=== PATIENT | male | born 1955 | race Caucasian/White ===

== ENCOUNTER 2021-08-05 10:31 | Inpatient (IN) | payer OTHER ==
[2021-08-05] MEDS ORDERED: SODIUM CHLORIDE 1,000 ML IV STA (12:19)
[2021-08-05] MEDS ORDERED: KETOROLAC TROMETHAMINE 60 MG/2 ML VIAL IVPB ONE (12:20)
[2021-08-05] MEDS ORDERED: ONDANSETRON 4 MG/2 ML VIAL IVPUSH ONE (12:20)
[2021-08-05] MEDS ORDERED: ONDANSETRON 4 MG/2 ML VIAL ONE (12:41)
[2021-08-05] MEDS ORDERED: KETOROLAC TROMETHAMINE 30 MG/1 ML VIAL ONE ×2 (12:41→21:37)
[2021-08-05 12:48] LABS: BASO % 0.4 % (0-2.0); HEMATOCRIT 43.9 % (35.4-49); HEMOGLOBIN 15.3 GM/dL (11.7-16.9); LYMPH % 5.4 % (8-40); MCH 32.8 pg (25.7-33.7); MCHC 34.9 g/dl (32.0-35.9); MEAN CELL VOLUME 94.1 fl (80-96); MEAN PLT VOLUME 7.2 fl (7.5-11.1); MONO % 7.5 % (3.8-10.2); NEUT % 86.7 % (42.8-82.8); PLATELET COUNT 246 10^3/uL (134-434); RBC 4.66 M/mm3 (4.00-5.60); RDW 12.8 % (11.9-15.9); WHITE BLOOD COUNT 11.1 K/mm3 (4.0-10.0)
[2021-08-05 13:13] LABS: CALCIUM 9.2 mg/dL (8.5-10.1)
[2021-08-05 13:13] LABS: URINE APPEARANCE CLEAR; URINE BILIRUBIN NEGATIVE (NEGATIVE); URINE COLOR YELLOW; URINE GLUCOSE (UA) NEGATIVE (NEGATIVE); URINE KETONE 1+ (NEGATIVE); URINE LEUK ESTERASE NEGATIVE (NEGATIVE); URINE NITRITE NEGATIVE (NEGATIVE); URINE PROTEIN TRACE (NEGATIVE)
[2021-08-05 13:14] LABS: ALBUMIN 3.9 g/dl (3.4-5.0); BLOOD UREA NITROGEN 21.2 mg/dL (7-18)
[2021-08-05 13:17] LABS: CREATININE 1.6 mg/dL (0.55-1.3)
[2021-08-05 13:19] LABS: BILIRUBIN,TOTAL 1.6 mg/dL (0.2-1); TOT PROT 7.1 g/dl (6.4-8.2)
[2021-08-05] MEDS ORDERED: TAMSULOSIN HCL 0.4 MG CAP PO ONE (13:38)
[2021-08-05] MEDS ORDERED: TAMSULOSIN HCL 0.4 MG CAP ONE (13:43)
[2021-08-05] MEDS ORDERED: CEFTRIAXONE 1,000 MG in DEXTROSE 5%-WATER - 50 ML IVPB ONE (15:55)
[2021-08-05] MEDS ORDERED: KETOROLAC TROMETHAMINE 30 MG/1 ML VIAL IVPUSH ONE (21:15)
[2021-08-05] MEDS ORDERED: SODIUM CHLORIDE 1,000 ML IV SCH (21:45)
[2021-08-05] MEDS ORDERED: TOPIRAMATE 25 MG TABLET PO PRN (23:22)
[2021-08-05] MEDS ORDERED: MONTELUKAST NA 10 MG TABLET PO SCH (23:22)
[2021-08-05] MEDS ORDERED: MONTELUKAST NA 10 MG TABLET ONE (23:52)
[2021-08-06] MEDS ORDERED: morphine SULFATE 4 MG/ML VIAL IM PRN (00:41)
[2021-08-06 02:54] VITALS: BMI 25.7
[2021-08-06] MEDS ORDERED: morphine SULFATE 4 MG/ML VIAL IV PRN (03:34)
[2021-08-06] MEDS ORDERED: ACETAMINOPHEN 1000 MG/100 ML VIAL IVPB PRN (06:05)
[2021-08-06 07:43] LABS: BASO % 0.5 % (0-2.0); HEMOGLOBIN 12.5 GM/dL (11.7-16.9); LYMPH % 11.5 % (8-40); MCH 33.2 pg (25.7-33.7); MCHC 35.6 g/dl (32.0-35.9); MEAN CELL VOLUME 93.2 fl (80-96); MEAN PLT VOLUME 7.8 fl (7.5-11.1); MONO % 11.6 % (3.8-10.2); NEUT % 75.4 % (42.8-82.8); PLATELET COUNT 187 10^3/uL (134-434); RBC 3.76 M/mm3 (4.00-5.60); RDW 12.6 % (11.9-15.9); WHITE BLOOD COUNT 7.3 K/mm3 (4.0-10.0)
[2021-08-06 07:52] LABS: INR 1.19 (0.83-1.09); PROTHROMBIN TIME (PATIENT) 13.9 SEC (9.7-13.0)
[2021-08-06 07:54] LABS: ACTIVATED PTT 26.7 SECONDS (25.2-36.5)
[2021-08-06 08:11] LABS: BLOOD UREA NITROGEN 20.3 mg/dL (7-18)
[2021-08-06] MEDS ORDERED: PROPOFOL 20 ML ONE ×2 (08:11)
[2021-08-06 08:12] LABS: MAGNESIUM 1.7 mg/dL (1.8-2.4)
[2021-08-06] MEDS ORDERED: MIDAZOLAM HCL 2 MG/2 ML SINGLE DOSE VIAL ONE ×2 (08:12→08:13)
[2021-08-06] MEDS ORDERED: SUCCINYLCHOLINE CHLORIDE 200 MG/10 ML SYRINGE ONE (08:12)
[2021-08-06 08:13] LABS: BILIRUBIN,TOTAL 1.7 mg/dL (0.2-1); URIC ACID 3.9 mg/dL (2.6-7.2)
[2021-08-06 08:14] LABS: CREATININE 1.6 mg/dL (0.55-1.3); PHOSPHOROUS 2.4 mg/dL (2.5-4.9); TOT PROT 5.2 g/dl (6.4-8.2)
[2021-08-06 08:23] LABS: ALBUMIN 2.7 g/dl (3.4-5.0); CALCIUM 7.5 mg/dL (8.5-10.1)
[2021-08-06] MEDS ORDERED: IOHEXOL 300 MG/ML INFUS..BTL IV ONE (08:30)
[2021-08-06] MEDS ORDERED: TAMSULOSIN HCL 0.4 MG CAP PO SCH (08:30)
[2021-08-06] MEDS ORDERED: DEXAMETHASONE SOD PHOSPHATE 4 MG/1 ML VIAL ONE (08:45)
[2021-08-06] MEDS ORDERED: LIDOCAINE HCL/PF 2% SDV 5ML VIAL ONE (09:00)
[2021-08-06] MEDS ORDERED: GENTAMICIN SO4 80 MG/2 ML VIAL ONE (09:00)
[2021-08-06] MEDS ORDERED: LOSARTAN POTASSIUM 50 MG TABLET PO SCH (10:00)
[2021-08-06] MEDS ORDERED: amLODIPine BESYLATE 5 MG TABLET (FP) PO SCH (10:00)
[2021-08-06] MEDS: SODIUM CHLORIDE 1,000 ML IV SCH (10:50)
[2021-08-06] MEDS: LOSARTAN POTASSIUM 50 MG TABLET PO SCH (11:51)
[2021-08-06] MEDS: amLODIPine BESYLATE 10 MG TABLET (FP) PO SCH (11:52)
[2021-08-06] MEDS: TOPIRAMATE 25 MG TABLET PO PRN (11:52)
[2021-08-06] MEDS: ACETAMINOPHEN 1000 MG/100 ML VIAL IVPB PRN ×2 (13:39→21:11)
[2021-08-06] MEDS: morphine SULFATE 4 MG/ML VIAL IV PRN ×2 (15:24→18:56)
[2021-08-06] MEDS: TAMSULOSIN HCL 0.4 MG CAP PO SCH (16:21)
[2021-08-06] MEDS ORDERED: MAGNESIUM SULF 50% (8.12 MEQ/2 ML-1 GM VIAL) IVPB ONE (18:45)
[2021-08-06] MEDS ORDERED: NAPH,MB-DB/K PH,MBDB POWDER PACKET PO ONE (18:48)
[2021-08-06] MEDS: MONTELUKAST NA 10 MG TABLET PO SCH (21:10)
[2021-08-07] MEDS: ACETAMINOPHEN 1000 MG/100 ML VIAL IVPB PRN (04:49)
[2021-08-07] MEDS ORDERED: TAMSULOSIN HCL 0.4 MG CAP PO SCH (08:30)
[2021-08-07 08:54] LABS: HEMATOCRIT 35.3 % (35.4-49); HEMOGLOBIN 12.4 GM/dL (11.7-16.9); MEAN CELL VOLUME 94.1 fl (80-96); MEAN PLT VOLUME 7.9 fl (7.5-11.1); PLATELET COUNT 196 10^3/uL (134-434); RBC 3.75 M/mm3 (4.00-5.60); RDW 12.6 % (11.9-15.9); WHITE BLOOD COUNT 7.6 K/mm3 (4.0-10.0)
[2021-08-07 09:14] LABS: CALCIUM 7.9 mg/dL (8.5-10.1)
[2021-08-07 09:15] LABS: ALBUMIN 2.8 g/dl (3.4-5.0); BLOOD UREA NITROGEN 12.7 mg/dL (7-18)
[2021-08-07 09:18] LABS: PHOSPHOROUS 2.6 mg/dL (2.5-4.9)
[2021-08-07 09:19] LABS: BILIRUBIN,TOTAL 1.3 mg/dL (0.2-1); TOT PROT 5.4 g/dl (6.4-8.2)
[2021-08-07] MEDS ORDERED: PT OWN MED DRAWER 7, Y5N ONE (10:48)
[2021-08-07] MEDS: TOPIRAMATE 25 MG TABLET PO PRN (11:17)
[2021-08-07] MEDS: TAMSULOSIN HCL 0.4 MG CAP PO SCH (11:37)
[2021-08-07] MEDS: amLODIPine BESYLATE 10 MG TABLET (FP) PO SCH (11:38)
[2021-08-07] MEDS ORDERED: LOSARTAN POTASSIUM 50 MG TABLET PO ONE (22:00)
[2021-08-07] MEDS: MONTELUKAST NA 10 MG TABLET PO SCH (22:50)
[2021-08-07] MEDS: PANTOPRAZOLE SODIUM 40 MG VIAL IVPUSH SCH (22:50)
[2021-08-07] MEDS: SODIUM CHLORIDE 1,000 ML IV SCH ×2 (23:28→23:29)
[2021-08-08] MEDS ORDERED: ACETAMINOPHEN 1000 MG/100 ML VIAL IVPB ONE (01:38)
[2021-08-08 06:02] VITALS: TEMP 98.2
[2021-08-08 08:15] LABS: HEMATOCRIT 36.8 % (35.4-49); HEMOGLOBIN 12.9 GM/dL (11.7-16.9); MCH 32.5 pg (25.7-33.7); MEAN CELL VOLUME 92.9 fl (80-96); MEAN PLT VOLUME 7.3 fl (7.5-11.1); PLATELET COUNT 208 10^3/uL (134-434); RBC 3.96 M/mm3 (4.00-5.60); RDW 12.7 % (11.9-15.9); WHITE BLOOD COUNT 5.6 K/mm3 (4.0-10.0)
[2021-08-08 08:43] LABS: ALBUMIN 2.9 g/dl (3.4-5.0); CALCIUM 8.6 mg/dL (8.5-10.1)
[2021-08-08 08:44] LABS: BLOOD UREA NITROGEN 10.7 mg/dL (7-18)
[2021-08-08 08:48] LABS: PHOSPHOROUS 3.7 mg/dL (2.5-4.9)
[2021-08-08 08:50] LABS: TOT PROT 5.5 g/dl (6.4-8.2)
[2021-08-08] MEDS ORDERED: MULTIVIT-MINERALS ORAL LIQUID PO SCH ×2 (10:00)
[2021-08-08] MEDS: SODIUM CHLORIDE 1,000 ML IV SCH (10:02)
[2021-08-08] MEDS: TAMSULOSIN HCL 0.4 MG CAP PO SCH (10:02)
[2021-08-08] MEDS: amLODIPine BESYLATE 10 MG TABLET (FP) PO SCH (10:02)
[2021-08-08] MEDS: LOSARTAN POTASSIUM 50 MG TABLET PO SCH (10:02)
[2021-08-08] MEDS: PANTOPRAZOLE SODIUM 40 MG VIAL IVPUSH SCH (10:03)
[2021-08-08 16:35] VITALS: BP 150/93; PULSE 60
[2021-08-12 09:52] LABS: SIZE 4X3; WEIGHT 31
== END 2021-08-08 18:52 | disposition home or self-care (01) | DRG 660 ==
LOC: JER 10:31 → JERBED 15:56 → J8W 08-06 02:06
PROVIDERS: ATTEND Internal Medicine
PROC: BT1FYZZ Fluoroscopy of Left Kidney, Ureter and Bladder using Other Contrast (ICD-10-PCS; 2021-08-06)
PROC: 0T778DZ Dilation of Left Ureter with Intraluminal Device, Via Natural or Artificial Opening Endoscopic (ICD-10-PCS; principal; 2021-08-06 08:00)
PROC: 0TC78ZZ Extirpation of Matter from Left Ureter, Via Natural or Artificial Opening Endoscopic (ICD-10-PCS; 2021-08-06 08:00)
DX: N17.9 Acute kidney failure, unspecified (principal); N39.0 Urinary tract infection, site not specified; N13.2 Hydronephrosis with renal and ureteral calculous obstruction; J45.909 Unspecified asthma, uncomplicated; K21.9 Gastro-esophageal reflux disease without esophagitis; D72.829 Elevated white blood cell count, unspecified; I12.9 Hypertensive chronic kidney disease with stage 1 through stage 4 chronic kidney disease, or unspecified chronic kidney disease; N18.9 Chronic kidney disease, unspecified; Z88.0 Allergy status to penicillin; R33.9 Retention of urine, unspecified
CPT/HCPCS: 36415; 74176-TC; 80053; 81003; 82360; 83735; 84100; 84550; 85025; 85027; 85610; 85730; 86850; 86900; 86901; 87040; 87086; 88300-TC; 93005; 93010; 94010; 94760; 99285-25; C9803; J0131; U0003; U0005

== ENCOUNTER 2021-11-21 04:15 | Day surgery (SDC) | payer OTHER ==
[2021-09-23 10:41] VITALS: BMI 24.4
[2021-11-21] MEDS ORDERED: MIDAZOLAM HCL 2 MG/2 ML SINGLE DOSE VIAL ONE (09:42)
[2021-11-21] MEDS ORDERED: PROPOFOL 20 ML ONE (09:42)
[2021-11-21] MEDS ORDERED: DEXAMETHASONE SOD PHOSPHATE 4 MG/1 ML VIAL ONE (10:19)
[2021-11-21 12:18] VITALS: BP 124/76; PULSE 68; TEMP 97.9
== END 2021-11-21 12:22 | disposition home or self-care (01) ==
LOC: JASU-SURG 04:15
PROVIDERS: ATTEND Urology
PROC: 0TF4XZZ Fragmentation in Left Kidney Pelvis, External Approach (ICD-10-PCS; principal; 2021-11-21 10:00)
DX: N20.0 Calculus of kidney (principal)

== ENCOUNTER 2022-06-11 08:42 | Inpatient (IN) | payer OTHER ==
[2022-06-11 09:14] VITALS: RESP 18
[2022-06-11 09:18] LABS: BASO % 0.6 % (0-2.0); EOS % 1.7 % (0-4.5); HEMATOCRIT 41.8 % (35.4-49); HEMOGLOBIN 14.2 GM/dL (11.7-16.9); LYMPH % 23.4 % (8-40); MCH 29.8 pg (25.7-33.7); MEAN CELL VOLUME 87.5 fl (80-96); MEAN PLT VOLUME 7.1 fl (7.5-11.1); MONO % 6.9 % (3.8-10.2); NEUT % 67.4 % (42.8-82.8); PLATELET COUNT 212 10^3/uL (134-434); RBC 4.78 M/mm3 (4.00-5.60); RDW 13.5 % (11.9-15.9); WHITE BLOOD COUNT 5.1 K/mm3 (4.0-10.0)
[2022-06-11] MEDS ORDERED: ONDANSETRON 4 MG/2 ML VIAL IVPUSH ONE (09:20)
[2022-06-11] MEDS ORDERED: ONDANSETRON 4 MG/2 ML VIAL ONE ×2 (09:21→12:17)
[2022-06-11 09:33] LABS: ACTIVATED PTT 27.6 SECONDS (25.2-36.5); INR 0.95 (0.83-1.09); PROTHROMBIN TIME (PATIENT) 10.9 SEC (9.7-13.0)
[2022-06-11 09:50] LABS: ALBUMIN 3.8 g/dl (3.4-5.0); CALCIUM 8.2 mg/dL (8.5-10.1)
[2022-06-11 09:54] LABS: CREATININE 0.9 mg/dL (0.55-1.3)
[2022-06-11 09:55] LABS: BILIRUBIN,TOTAL 1.1 mg/dL (0.2-1); TOT PROT 6.5 g/dl (6.4-8.2)
[2022-06-11] MEDS ORDERED: METOCLOPRAMIDE HCL INJECTION 10 MG/2 ML VIAL IVPUSH ONE (09:56)
[2022-06-11] MEDS ORDERED: LACTATED RINGERS SOLUTION 1000 ML INFUS.BAG IV ONE (09:56)
[2022-06-11] MEDS ORDERED: KCL 10 MEQ IVPB 10 MEQ/100 ML INFUS.BAG IVPB ONE ×2 (10:07→12:21)
[2022-06-11] MEDS ORDERED: METOCLOPRAMIDE HCL INJECTION 10 MG/2 ML VIAL ONE (10:07)
[2022-06-11] MEDS ORDERED: ASPIRIN 81 MG CHEWABLE TABLETS PO ONE (10:21)
[2022-06-11] MEDS: KCL 10 MEQ IVPB 10 MEQ/100 ML INFUS.BAG IVPB SCH ×3 (10:23→12:26)
[2022-06-11 10:29] LABS: PH,URINE 7.5 (5.0-8.0); URINE APPEARANCE CLEAR; URINE BILIRUBIN NEGATIVE (NEGATIVE); URINE COLOR YELLOW; URINE GLUCOSE (UA) NEGATIVE (NEGATIVE); URINE KETONE NEGATIVE (NEGATIVE); URINE LEUK ESTERASE NEGATIVE (NEGATIVE); URINE NITRITE NEGATIVE (NEGATIVE); URINE PROTEIN NEGATIVE (NEGATIVE); URINE UROBILINOGEN 0.2 mg/dL (0.2-1.0)
[2022-06-11] MEDS ORDERED: ASPIRIN 81 MG CHEWABLE TABLETS ONE (10:39)
[2022-06-11 11:05] LABS: PHOSPHOROUS 2.9 mg/dL (2.5-4.9)
[2022-06-11] MEDS ORDERED: ONDANSETRON 4 MG/2 ML VIAL IVPUSH PRN (11:43)
[2022-06-11] MEDS ORDERED: MECLIZINE HCL 25 MG TABLET (FP) PO PRN (11:43)
[2022-06-11] MEDS ORDERED: MECLIZINE HCL 25 MG TABLET (FP) ONE (12:17)
[2022-06-11] MEDS ORDERED: PANTOPRAZOLE SODIUM 40 MG VIAL ONE (12:17)
[2022-06-11] MEDS: PANTOPRAZOLE SODIUM 40 MG VIAL IVPUSH SCH (12:26)
[2022-06-11] MEDS ORDERED: ATORVASTATIN CA 80 MG TABLET (FP) PO ONE (15:44)
[2022-06-11] MEDS ORDERED: ATORVASTATIN CA 80 MG TABLET (FP) ONE (15:55)
[2022-06-11] MEDS: SODIUM CHLORIDE 1,000 ML IV SCH (16:03)
[2022-06-11] MEDS ORDERED: HEPARIN NA (PORCINE) 5,000 UNITS/ML 1ML VIAL ONE (22:40)
[2022-06-11] MEDS ORDERED: MONTELUKAST NA 10 MG TABLET ONE (22:40)
[2022-06-11] MEDS: HEPARIN NA (PORCINE) 5,000 UNITS/ML 1ML VIAL SQ SCH (22:44)
[2022-06-11] MEDS: MONTELUKAST NA 10 MG TABLET PO SCH (22:44)
[2022-06-12] MEDS ORDERED: LOSARTAN POTASSIUM 50 MG TABLET ONE (07:48)
[2022-06-12] MEDS ORDERED: NIFEdipine E.R. 30 MG TABLET ONE (07:48)
[2022-06-12] MEDS ORDERED: CLOPIDOGREL BISULFATE 75 MG TABLET (FP) ONE (07:48)
[2022-06-12] MEDS ORDERED: ASPIRIN 81 MG CHEWABLE TABLETS ONE (07:49)
[2022-06-12] MEDS ORDERED: PANTOPRAZOLE SODIUM 40 MG/100 ML BAG IVPB ONE (07:49)
[2022-06-12] MEDS ORDERED: HEPARIN NA (PORCINE) 5,000 UNITS/ML 1ML VIAL ONE (07:49)
[2022-06-12] MEDS: ASPIRIN 81 MG CHEWABLE TABLETS PO SCH (11:00)
[2022-06-12] MEDS: HEPARIN NA (PORCINE) 5,000 UNITS/ML 1ML VIAL SQ SCH ×2 (11:00→22:10)
[2022-06-12] MEDS: LOSARTAN POTASSIUM 50 MG TABLET PO SCH (11:00)
[2022-06-12] MEDS: NIFEdipine E.R. 30 MG TABLET PO SCH (11:00)
[2022-06-12] MEDS: CLOPIDOGREL BISULFATE 75 MG TABLET (FP) PO SCH (11:00)
[2022-06-12] MEDS: PANTOPRAZOLE SODIUM 40 MG VIAL IVPUSH SCH (11:00)
[2022-06-12] MEDS: SODIUM CHLORIDE 1,000 ML IV SCH ×2 (15:16→22:25)
[2022-06-12 21:54] VITALS: BMI 25.6
[2022-06-12] MEDS ORDERED: ATORVASTATIN CA 80 MG TABLET (FP) PO SCH (22:00)
[2022-06-12] MEDS: MONTELUKAST NA 10 MG TABLET PO SCH (22:11)
[2022-06-13 09:01] VITALS: BP 145/92; PULSE 70; TEMP 97.8
[2022-06-13] MEDS ORDERED: POTASSIUM CHLORIDE TABS 20 MEQ TABLET.ER (FP) PO ONE (09:36)
[2022-06-13] MEDS: SODIUM CHLORIDE 1,000 ML IV SCH (09:57)
[2022-06-13] MEDS: PANTOPRAZOLE SODIUM 40 MG VIAL IVPUSH SCH (09:59)
[2022-06-13] MEDS: HEPARIN NA (PORCINE) 5,000 UNITS/ML 1ML VIAL SQ SCH (10:01)
[2022-06-13] MEDS: CLOPIDOGREL BISULFATE 75 MG TABLET (FP) PO SCH (10:01)
[2022-06-13] MEDS: NIFEdipine E.R. 30 MG TABLET PO SCH (10:01)
[2022-06-13] MEDS: ASPIRIN 81 MG CHEWABLE TABLETS PO SCH (10:01)
[2022-06-13] MEDS: LOSARTAN POTASSIUM 50 MG TABLET PO SCH (10:01)
== END 2022-06-13 14:20 | disposition home or self-care (01) | DRG 65 ==
LOC: JER 08:42 → JERBED 09:28 → J4W 06-12 20:28
PROVIDERS: ADMIT Internal Medicine; ATTEND Internal Medicine
DX: I63.9 Cerebral infarction, unspecified (principal); Q23.1 Congenital insufficiency of aortic valve; J45.909 Unspecified asthma, uncomplicated; K21.9 Gastro-esophageal reflux disease without esophagitis; R26.0 Ataxic gait; I10 Essential (primary) hypertension; R47.1 Dysarthria and anarthria; R29.702 NIHSS score 2; M54.50 Low back pain, unspecified; Z85.12 Personal history of malignant neoplasm of trachea
CPT/HCPCS: 0241U-QW; 36415; 70450-TC; 70496-TC; 70498-TC; 70544-TC; 70551-TC; 71045-TC-FY; 80053; 80061; 81003; 82962; 83036; 83735; 84100; 84132; 84484; 85025; 85610; 85730; 86850; 86900; 86901; 93005; 93010; 93306-TC; 93880-TC; 97116-GP; 97162-GP; 99285-25; J1644

== ENCOUNTER 2024-04-07 04:10 | Day surgery (SDC) | payer OTHER ==
[2024-04-03 17:31] VITALS: BMI 27.1
[2024-04-07] MEDS ORDERED: MIDAZOLAM HCL 2 MG/2 ML SINGLE DOSE VIAL ONE (08:38)
[2024-04-07] MEDS ORDERED: ONDANSETRON 4 MG/2 ML VIAL ONE (08:38)
[2024-04-07 09:42] VITALS: RESP 20
[2024-04-07 10:42] VITALS: BP 126/81; PULSE 67; TEMP 98.7
== END 2024-04-07 10:47 | disposition home or self-care (01) ==
LOC: JASU-SURG 04:10
PROVIDERS: ATTEND Urology
PROC: 0TF4XZZ Fragmentation in Left Kidney Pelvis, External Approach (ICD-10-PCS; principal; 2024-04-07 09:30)
DX: N20.0 Calculus of kidney (principal)

== ENCOUNTER 2024-05-19 04:05 | Day surgery (SDC) | payer OTHER ==
[2024-05-16 14:46] VITALS: BMI 27.8
[2024-05-19 07:27] VITALS: BP 111/79; PULSE 71; RESP 20; TEMP 98.2
== END 2024-05-19 08:30 | disposition home or self-care (01) ==
LOC: JASU-SURG 04:05
PROVIDERS: ATTEND Urology
PROC: 0TF4XZZ Fragmentation in Left Kidney Pelvis, External Approach (ICD-10-PCS; principal; 2024-05-19)
DX: N20.0 Calculus of kidney (principal)

== ENCOUNTER 2024-06-02 04:13 | Day surgery (SDC) | payer OTHER ==
[2024-05-29 17:58] VITALS: BMI 27.1
[2024-06-02 08:25] VITALS: RESP 20
[2024-06-02] MEDS ORDERED: MIDAZOLAM HCL 2 MG/2 ML SINGLE DOSE VIAL ONE ×2 (11:30→11:37)
[2024-06-02 13:22] VITALS: BP 134/87; PULSE 61; TEMP 97.8
== END 2024-06-02 13:35 | disposition home or self-care (01) ==
LOC: JASU-SURG 04:13
PROVIDERS: ATTEND Urology
PROC: 0TF4XZZ Fragmentation in Left Kidney Pelvis, External Approach (ICD-10-PCS; principal; 2024-06-02 11:38)
DX: N20.0 Calculus of kidney (principal)